=== PATIENT | female | born 1965 | race African-American/Black ===

== ENCOUNTER 2016-10-15 17:35 | Emergency (ER) | payer SELFPAY ==
--- NOTE | 2016-10-15 17:45 | Emergency Department Report ---
Chief Complaint: Abdominal Pain Stated Complaint: ABD PAIN Time Seen by Provider: 10/15/16 17:43 - HPI History of Present Illness: PT brought into the ED for intermittent abd pain since Saturday. PT c/o LUQ abd pain that radiates to back - ROS Review of Systems: + n/v + back pain - Exam Physical Exam: LUQ ttp pt appears in pain MSE screening note: Focused history and physical exam performed. Due to findings the following was ordered: ekg, labs ED Disposition for MSE Condition: Stable
[2016-10-15 18:26] LABS: Basophils % (Auto) 0.2 % (0.0-1.8); Eosinophils % (Auto) 0.5 % (0.0-4.3); Hematocrit 38.4 % (30.3-42.9); Hemoglobin 12.6 gm/dl (10.1-14.3); Mean Corpuscular HGB Conc 33 % (30-34); Mean Corpuscular Hemoglobin 27 pg (28-32); Mean Corpuscular Volume 83 fl (79-97); Platelet Count 296 K/mm3 (140-440); Red Blood Count 4.62 M/mm3 (3.65-5.03); Red Cell Distribution Width 14.2 % (13.2-15.2); White Blood Count 8.2 K/mm3 (4.5-11.0)
[2016-10-15 19:16] LABS: Bilirubin,Urine NEG (Negative); Blood,Urine MOD (Negative); Ketones,Urine NEG (Negative); Leukocyte Esterase,Urine TR (Negative); Mucus,Urine FEW /HPF; Nitrite,Urine NEG (Negative); Urobilinogen,Urine < 2.0 mg/dL (<2.0)
[2016-10-15 19:21] LABS: Alanine Aminotransferase 25 units/L (7-56); Albumin 4.5 g/dL (3.9-5); Albumin/Globulin Ratio 1.2 %; Alkaline Phosphatase 75 units/L (35-129); Anion Gap 25 mmol/L; Blood Urea Nitrogen 12 mg/dL (7-17); Calcium 9.6 mg/dL (8.4-10.2); Carbon Dioxide 22 mmol/L (22-30); Chloride 96.8 mmol/L (98-107); Glucose 131 mg/dL (65-100); Lipase 22 units/L (13-60); Potassium 4.6 mmol/L (3.6-5.0); Sodium 139 mmol/L (137-145); Total Protein 8.4 g/dL (6.3-8.2)
[2016-10-16] MEDS ORDERED: MORPHINE IV ONE (02:12)
[2016-10-16] MEDS ORDERED: NACL 0.9% 1000 ML 1,000 ML IV ONE (02:12)
--- NOTE | 2016-10-16 02:14 | Emergency Department Report ---
HPI - General Chief Complaint: Abdominal Pain Time Seen by Provider: 10/15/16 17:43 - HPI HPI: This is a 51-year-old female who presents to the emergency department from home with a complaint of a three-day history of abdominal pain. It was intermittent, mostly occurring at night, however today the pain started around 3 PM and has been going on consistently since. She had some nausea earlier with vomiting. She denies any fever, dysuria, vaginal bleeding, vaginal discharge. She took some [id number] pain medication of her symptoms without any relief. She does not have a primary care physician. No recent travel or sick contacts at home. She denies any past medical history. The patient's daughter is bedside translating. ED Past Medical Hx - Past Medical History Additional medical history: "stomach problem" - Surgical History Past Surgical History?: Yes Additional Surgical History: neck surgery - Social History Smoking Status: Never Smoker Substance Use Type: None - Medications Home Medications: Home Medications Medication Instructions Recorded Confirmed Last Taken Type Ciprofloxacin HCl [Ciprofloxacin 500 mg PO BID #10 tablet 10/16/16 Unknown Rx TAB] HYDROcodone/APAP 5-325 [[place] 1 each PO Q6HR PRN #10 tablet 10/16/16 Unknown Rx 5/325] Tamsulosin [Flomax] 0.4 mg PO QDAY #4 cap 10/16/16 Unknown Rx ED Review of Systems ROS: Stated complaint: ABD PAIN Other details as noted in HPI Comment: All other systems reviewed and negative Constitutional: denies: chills, fever Eyes: denies: eye pain, eye discharge, vision change ENT: denies: ear pain, throat pain Respiratory: denies: cough, shortness of breath, wheezing Cardiovascular: denies: chest pain, palpitations Gastrointestinal: abdominal pain, nausea, vomiting Genitourinary: denies: urgency, dysuria, discharge Musculoskeletal: denies: back pain, joint swelling, arthralgia Skin: denies: rash, lesions Neurological: denies: headache, weakness, paresthesias Physical Exam - Physical Exam Vital Signs: Vital Signs 10/15/16 10/15/16 17:41 23:05 Temperature 98.6 F 97.4 F L Pulse Rate 70 70 Respiratory 18 18 Rate Blood Pressure 177/90 140/85 O2 Sat by Pulse 99 100 Oximetry Physical Exam: GENERAL: The patient is well-developed well-nourished. HENT: Normocephalic. Atraumatic. Patient has moist mucous membranes. EYES: Extraocular motions are intact. Pupils equal reactive to light bilaterally. NECK: Supple. Trachea is midline. CHEST/LUNGS: Clear to auscultation. There is no respiratory distress noted. HEART/CARDIOVASCULAR: Regular. There is no tachycardia. There is no gallop rub or murmur. ABDOMEN: Abdomen is soft. There is some mild reproducible right upper quadrant and right lower quadrant tenderness to palpation. No guarding or rebound tenderness. No peritoneal signs. Patient has normal bowel sounds. There is no abdominal distention. SKIN: Skin is warm and dry. NEURO: The patient is awake, alert, and oriented. The patient is cooperative. The patient has no focal neurologic deficits. MUSCULOSKELETAL: There is no tenderness or deformity. There is no limitation range of motion. There is no evidence of acute injury. ED Course Vital Signs 10/15/16 10/15/16 17:41 23:05 Temperature 98.6 F 97.4 F L Pulse Rate 70 70 Respiratory 18 18 Rate Blood Pressure 177/90 140/85 O2 Sat by Pulse 99 100 Oximetry ED Medical Decision Making - Lab Data Result diagrams: 10/15/16 18:03 10/15/16 18:03 - Radiology Data Radiology results: report reviewed EXAM: CT ABDOMEN PELVIS W CON HISTORY: Abd pain lt side flank COMPARISON: None available. TECHNIQUE: Contiguous axial images were obtained. Additional sagittal and coronal reformatted images were obtained. Administration of IV contrast given per institution protocol. Images submitted for interpretation. 100 cc Omnipaque [id number]. FINDINGS: In the distal left ureter just proximal to the UVJ there is a 4 x 4 millimeter calculus causing moderate left-sided hydroureteronephrosis and perinephric fat stranding. There is a mildly delayed nephrogram on the left. No solid renal lesion. There are small cysts on the right. No solid renal lesion on the right. There is mild focal dilatation right renal pelvis due to a 10 x 7 millimeter calculus.. Urinary bladder is unremarkable. Mild linear atelectasis or scarring at the lung bases. Tiny hiatal hernia. Mild diffuse fatty infiltration of the liver. No calcified gallstones or biliary dilatation. Spleen and pancreas are unremarkable. Mild nodular thickening of the adrenal glands. Aorta and IVC are normal in caliber. Uterus and ovaries are grossly unremarkable. The appendix is gas-filled and normal in caliber measuring up to 6 millimeters. Moderate large amount of stool in the right colon. No focal inflammatory changes the bowel. Bony pelvis and lumbar spine are grossly intact. IMPRESSION: 4 x 4 millimeter calculus in the distal left ureter causing moderate left-sided hydroureteronephrosis. Mildly delayed nephrogram on the left. 10 x 7 millimeter calculus right renal pelvis causing mild dilatation right renal pelvis focally. - Medical Decision Making This 51-year-old female presents to the emergency department with some intermittent abdominal pain that became more constant earlier today. Labs are mostly unremarkable except for a large amount of blood seen in the urine on urinalysis. A CT of the abdomen and pelvis was done to look for such things as kidney stones and/or malignancy. The CT results show a 4 cm left-sided ureter stone in the distal ureter just above the UVJ. There is some moderate left- sided hydronephrosis. There is a right-sided intrarenal stone. The rest of the patient's labs are unremarkable including no leukocytosis and no renal sufficiency. Vital signs stable including being afebrile. She was given some fluid and pain medication and upon reevaluation she is feeling improved. There was some vomiting earlier but there has been none since presentation or throughout her ED course. There is a good chance of her passing the stone since it is less than 5 mm and already in the distal ureter. We will attempt outpatient treatment with a strainer, Cipro, Flomax and pain medication. She was given a referral for urology but they have been encouraged to return to the emergency Department with any worsening of her discomfort, development of fever , inability to pass the stone, inability to urinate or any acute distress. The understand and agree with the plan. - Differential Diagnosis nephrolithiasis, hydronephrosis, diverticulitis, colitis Critical Care Time: No Critical care attestation.: If time is entered above; I have spent that time in minutes in the direct care of this critically ill patient, excluding procedure time. ED Disposition Clinical Impression: Nephrolithiasis, Renal colic Hematuria Qualifiers: Hematuria type: unspecified type Qualified Code(s): R31.9 - Hematuria, unspecified Disposition: DC-01 TO HOME OR SELFCARE Is pt being admited?: No Condition: Stable Instructions: Renal Colic (ED), Abdominal Pain (ED) Additional Instructions: Please follow up with the primary care physician in the next few days. I have given you a referral for a local urologist, Dr. Dailey, to follow up regarding your kidney stones. You should strain your urine and see if you are able to collect the stone. Return to the emergency department with any worsening of your symptoms, increased pain, development of fever, inability to urinate, or any acute distress. You have been prescribed a medication that is sedating and therefore should not be taken prior to driving, working, and responsible for children and in no way should be mixed with alcohol of any quantity. Prescriptions: Ciprofloxacin HCl [Ciprofloxacin TAB] 500 mg PO BID #10 tablet HYDROcodone/APAP 5-325 [[place] 5/325] 1 each PO Q6HR PRN #10 tablet PRN Reason: Pain Tamsulosin [Flomax] 0.4 mg PO QDAY #4 cap Referrals: KATI DAILEY MD [Staff Physician] - [facility] Time of Disposition: 04:22
[2016-10-16] MEDS ORDERED: NACL ONE (03:01)
--- NOTE | 2016-10-16 04:04 | Cat Scan Report ---
FINAL REPORT EXAM: CT ABDOMEN PELVIS W CON HISTORY: Abd pain lt side flank COMPARISON: None available. TECHNIQUE: Contiguous axial images were obtained. Additional sagittal and coronal reformatted images were obtained. Administration of IV contrast given per institution protocol. Images submitted for interpretation. 100 cc Omnipaque [id number]. FINDINGS: In the distal left ureter just proximal to the UVJ there is a 4 x 4 millimeter calculus causing moderate left-sided hydroureteronephrosis and perinephric fat stranding. There is a mildly delayed nephrogram on the left. No solid renal lesion. There are small cysts on the right. No solid renal lesion on the right. There is mild focal dilatation right renal pelvis due to a 10 x 7 millimeter calculus.. Urinary bladder is unremarkable. Mild linear atelectasis or scarring at the lung bases. Tiny hiatal hernia. Mild diffuse fatty infiltration of the liver. No calcified gallstones or biliary dilatation. Spleen and pancreas are unremarkable. Mild nodular thickening of the adrenal glands. Aorta and IVC are normal in caliber. Uterus and ovaries are grossly unremarkable. The appendix is gas-filled and normal in caliber measuring up to 6 millimeters. Moderate large amount of stool in the right colon. No focal inflammatory changes the bowel. Bony pelvis and lumbar spine are grossly intact. IMPRESSION: 4 x 4 millimeter calculus in the distal left ureter causing moderate left-sided hydroureteronephrosis. Mildly delayed nephrogram on the left. 10 x 7 millimeter calculus right renal pelvis causing mild dilatation right renal pelvis focally.
[2016-10-16] MEDS ORDERED: NORCO 5/325 ONE (05:24)
[2016-10-16 05:25] VITALS: BP 126/69
[2016-10-16] MEDS ORDERED: NORCO 5/325 PO ONE (05:26)
== END 2016-10-16 05:32 | disposition home or self-care (01) ==
LOC: ED 17:35
DX: N20.0 Calculus of kidney (principal)
CPT/HCPCS: 36415; 74177; 80053; 81001; 83690; 84484; 85025; 93005; 93010; 96361; 96374; 99284; J2270; J7030; Q9966